=== PATIENT | female | born 1955 | race African-American/Black ===

== ENCOUNTER 2016-12-23 20:59 | Emergency (ER) | payer OTHER, SELFPAY ==
[2016-12-23] MEDS ORDERED: Ibuprofen 800 MG TAB ONE (23:04)
== END 2016-12-23 23:10 | disposition home or self-care (01) ==
LOC: ERS 20:59
DX: M85.68 Other cyst of bone, other site (principal); I10 Essential (primary) hypertension; K50.90 Crohn's disease, unspecified, without complications; F17.210 Nicotine dependence, cigarettes, uncomplicated
CPT/HCPCS: 99283

== ENCOUNTER 2017-04-19 17:11 | Emergency (ER) | payer BC, SELFPAY ==
--- NOTE | 2017-04-19 18:56 | RAD ---
SINGLE VIEW OF THE CHEST: Comparison: 07-30-16 History: Pneumonia with midback pain that is worse with inspiration. FINDINGS: Single view of the chest shows a normal sized cardiomediastinal silhouette. There is no evidence of c onsolidation, mass, or pleural effusion. The bones are unremarkable. IMPRESSION: No evidence of acute cardiopulmonary disease. POS: [facility]
[2017-04-19 19:10] LABS: #Basophils 0.1 thou/uL (0.0-0.2); #Eosinphils 0.3 thou/uL (0.0-0.7); #Lymphocytes 5.4 thou/uL (1.20-3.40); #Neutrophils 5.6 thou/uL (1.40-6.50); %Basophils 0.8 % (0.0-1.0); %Eosinophils 2.7 % (0.0-10.0); %Lymphocytes 43.6 % (21.0-51.0); %Monocytes 7.6 % (0.0-10.0); %Neutrophils 45.2 % (42.0-75.0); Hemoglobin 12.5 g/dL (12.0-16.0); Mean Corpuscular HGB CONC 32.3 g/dL (32.0-36.0); Mean Corpuscular Hemoglobin 28.9 pg (27.0-31.0); Mean Corpuscular Volume 89.3 fl (81.0-99.0); Mean Platelet Volume 6.7 fL (7.4-10.4); Platelet Count 361 thou/uL (130-400); RBC Distribution Width 13.9 % (11.5-14.5); Red Blood Cell (RBC) Count 4.32 mill/uL (4.20-5.40); White Blood Cell (WBC) Count 12.4 thou/uL (4.8-10.8)
[2017-04-19 19:22] LABS: Bilirubin Negative (Negative); Blood, Urine Negative (Negative); Clarity CLEAR (Clear); Glucose, Urine (Dipstick) Negative (Negative); Leukocyte Trace (Negative); Nitrite Negative (Negative); Protein, Urine (Dipstick) Negative (Neg-Trace); Specific Gravity, Urine 1.026 (1.002-1.036)
[2017-04-19 19:28] LABS: Bacteria/HPF 1+ HPF (None Seen); Hyaline Casts/LPF 0-3 HYALINE CAST LPF (0-3 Hyaline); RBC/HPF 0-3 HPF (0-3); Squamous Epithelial 0-3 HPF (0-3)
[2017-04-19 19:33] LABS: ALT (SGPT) 13 U/L (8-55); AST (SGOT) 15 U/L (5-34); Albumin 4.4 g/dL (3.5-5.0); Alkaline Phosphatase 86 U/L (40-150); Anion Gap 13 mmol/L (10-20); BUN (Urea Nitrogen) 10 mg/dL (9.8-20.1); Bilirubin, Total 0.2 mg/dL (0.2-1.2); CRP (Inflammatory) Less than 0.50 mg/dL (= or < 0.5); Calc. Creatinine Clearance 0 mL/min (70-130); Calcium 9.9 mg/dL (7.8-10.44); Carbon Dioxide 27 mmol/L (22-29); Chloride 105 mmol/L (98-107); Estimated GFR-MDRD 73; Globulin 3.4 g/dL (2.4-3.5); Glucose 77 mg/dL (70-105); Potassium 3.6 mmol/L (3.5-5.1); Protein, Total 7.8 g/dL (6.0-8.3); Sodium 141 mmol/L (136-145)
[2017-04-19 19:34] LABS: CKMB 1.2 ng/mL (0-6.6); Troponin I 0.012 ng/mL (< 0.028)
[2017-04-19] MEDS ORDERED: Ketorolac Tromethamine 30 MG/ML VIAL ONE (20:00)
== END 2017-04-19 20:20 | disposition home or self-care (01) ==
LOC: ERS 17:11
DX: M54.5 Low back pain (principal); K58.9 Irritable bowel syndrome, unspecified; K21.9 Gastro-esophageal reflux disease without esophagitis; I10 Essential (primary) hypertension; F17.210 Nicotine dependence, cigarettes, uncomplicated
CPT/HCPCS: 36415; 71045; 80053; 81003; 81015; 82553; 84484; 85025; 85379; 86140; 87086; 87804; 96372; J1885

== ENCOUNTER 2017-05-14 12:15 | Emergency (ER) | payer SELFPAY ==
[2017-05-14 12:46] LABS: #Basophils 0.1 thou/uL (0.0-0.2); #Eosinphils 0.2 thou/uL (0.0-0.7); #Lymphocytes 4.3 thou/uL (1.20-3.40); #Monocytes 0.7 thou/uL (0.11-0.59); #Neutrophils 3.6 thou/uL (1.40-6.50); %Basophils 0.8 % (0.0-1.0); %Eosinophils 2.4 % (0.0-10.0); %Lymphocytes 48.7 % (21.0-51.0); %Monocytes 7.7 % (0.0-10.0); %Neutrophils 40.4 % (42.0-75.0); Hemoglobin 12.8 g/dL (12.0-16.0); Mean Corpuscular HGB CONC 30.6 g/dL (32.0-36.0); Mean Corpuscular Hemoglobin 27.1 pg (27.0-31.0); Mean Corpuscular Volume 88.6 fl (81.0-99.0); Mean Platelet Volume 6.9 fL (7.4-10.4); Platelet Count 327 thou/uL (130-400); RBC Distribution Width 13.9 % (11.5-14.5); Red Blood Cell (RBC) Count 4.73 mill/uL (4.20-5.40); White Blood Cell (WBC) Count 8.8 thou/uL (4.8-10.8)
[2017-05-14] MEDS ORDERED: Pantoprazole 40 MG VIAL ONE (12:46)
[2017-05-14] MEDS ORDERED: Lorazepam 2 MG/ML VIAL ONE (12:46)
--- NOTE | 2017-05-14 13:07 | RAD ---
CHEST ONE VIEW: History: Chest pain. Jaw pain. Comparison: 04-19-17 FINDINGS: Lungs are clear. No pneumothorax or effusions. Cardiac silhouette and mediastinal contours are within normal limits. IMPRESSION: No acute intrathoracic abnormality. POS: [facility]
[2017-05-14 13:12] LABS: ALT (SGPT) 16 U/L (8-55); AST (SGOT) 21 U/L (5-34); Albumin 4.4 g/dL (3.5-5.0); Alkaline Phosphatase 79 U/L (40-150); Anion Gap 16 mmol/L (10-20); BUN (Urea Nitrogen) 12 mg/dL (9.8-20.1); Bilirubin, Total 0.7 mg/dL (0.2-1.2); CK (CPK) 81 U/L (29-168); Calc. Creatinine Clearance 0 mL/min (70-130); Calcium 10.1 mg/dL (7.8-10.44); Carbon Dioxide 23 mmol/L (22-29); Chloride 105 mmol/L (98-107); Estimated GFR-MDRD 64; Globulin 3.6 g/dL (2.4-3.5); Glucose 85 mg/dL (70-105); Lipase 7 U/L (8-78); Sodium 140 mmol/L (136-145)
[2017-05-14 13:16] LABS: CKMB 1.2 ng/mL (0-6.6); Troponin I Less than 0.010 ng/mL (< 0.028)
--- NOTE | 2017-05-16 13:06 | EKG ---
Test Reason : ANXIETY, CP Blood Pressure : / mmHG Vent. Rate : 121 BPM Atrial Rate : 121 BPM P-R Int : 158 ms QRS Dur : 064 ms QT Int : 314 ms P-R-T Axes : 079 054 061 degrees QTc Int : 445 ms Sinus tachycardia Biatrial enlargement Abnormal ECG Confirmed by NELI GAMEZ, SWATI ([id number]), general expeditor VIANEY PARDO ([id number]) on 05/16/2017 1:05:29 PM Referred By: Confirmed By:SWATI QUINTEROS MD
== END 2017-05-14 14:18 | disposition home or self-care (01) ==
LOC: ERS 12:15
DX: F41.1 Generalized anxiety disorder (principal); K58.9 Irritable bowel syndrome, unspecified; K21.9 Gastro-esophageal reflux disease without esophagitis; F17.210 Nicotine dependence, cigarettes, uncomplicated; Z79.899 Other long term (current) drug therapy
CPT/HCPCS: 71045; 80053; 82553; 83690; 84484; 85025; 93005; 96361; 96374; 96375; C9113; J2060

== ENCOUNTER 2017-07-30 10:58 | Day surgery (SDC) | payer OTHER ==
[2017-07-29 15:28] VITALS: BMI 38.9
[~2017-07-30 10:58] MED LIST: Dexamethasone 20 MG/5 ML VIAL ONE; Lidocaine 1% PF 5 ML VIAL ONE; Ondansetron HCl/PF 4 MG/2 ML Vial ONE; PROPOFOL 200 MG/20 ML VIAL ONE
[2017-07-30] MEDS ORDERED: Clindamycin/D5W 900 mg/50 ml Premix Bag ONE (11:47)
[2017-07-30] MEDS ORDERED: Bupivacaine PF 0.5% 30 ML VIAL ONE (13:26)
[2017-07-30] MEDS ORDERED: Fentanyl 100 MCG/2 ML VIAL ONE ×2 (13:29→15:21)
[2017-07-30] MEDS ORDERED: HYDROcodone/Acetaminophen 5/325 mg Tablet ONE (15:49)
--- NOTE | 2017-07-30 16:44 | OP ---
DATE OF PROCEDURE: 07/30/2017 OPERATION: Left wrist ganglion cyst excision, left carpal tunnel syndrome. PREOPERATIVE DIAGNOSES: Left ganglion cyst, volar and left carpal tunnel syndrome. POSTOPERATIVE DIAGNOSES: Left ganglion cyst, volar and left carpal tunnel syndrome. COMPLICATIONS: None. ESTIMATED BLOOD LOSS: Minimal. SURGEON: Patrick Burden M.D. ANESTHESIA: General plus local. INDICATIONS: Ms. Sharma is a 62-year-old female who has a long history of ganglion cyst on the v olar aspect of the left wrist. She also has developed carpal tunnel syndrome. She has been indicate d for the above procedures to restore function of the upper extremity and relieve pain. Surgery risk s have been reviewed and she has elected to proceed. DESCRIPTION OF OPERATION: Ms. Sharma was identified in the preoperative holding area. Her corre ct extremity was marked. She was carried to the operating room. She was positioned supine. General anesthesia was induced. A multidisciplinary timeout was performed. The left upper extremity was pr epped and draped in sterile fashion. We began the procedure with excision of the ganglion cyst. We made a 3 cm incision directly over the patient's previous scar. We dissected down through the subcutaneous tissues to the cyst wall. This was identified. We provided hemostasis with a cautery device. We then gently developed our planes around the cyst working mediolaterally proximal and distal down to the stalk which went directly into the wrist joint. We followed the stalk distally into the joint and then amputated the stalk. We ca uterized the bed of the wound. At this point, we thoroughly irrigated with copious lavage. The spec imen was sent for pathology. At this point, we moved to the carpal tunnel. A 2.5 cm incision was made. We dissected down through the subcutaneous tissues to the fascia. The fascia was split with a knife. We then worked more jakob ply and split the carpal tunnel ligament sharply. We then identified the proximal aspect of the carp al tunnel ligament. This was transected proximally using a push-cut technique. We then spread the c arpal tunnel ligament distally fully releasing. At this point, we thoroughly irrigated with copious lavage. We then closed with 2-0 Vicryl suture and nylon for the skin. A sterile dressing was applie d. The patient was taken to the recovery room in good condition without complication at this point: No implants were used.
[2017-07-30] MEDS ORDERED: Ketorolac Tromethamine 30 MG/ML VIAL ONE (16:46)
== END 2017-07-30 17:10 | disposition home or self-care (01) ==
LOC: SDC 10:58
PROVIDERS: ATTEND Orthopaedic Surgery
PROC: 01N50ZZ Release Median Nerve, Open Approach (ICD-10-PCS; principal; 2017-07-30)
PROC: 0LB60ZZ Excision of Left Lower Arm and Wrist Tendon, Open Approach (ICD-10-PCS; principal; 2017-07-30)
DX: M67.432 Ganglion, left wrist (principal); G56.02 Carpal tunnel syndrome, left upper limb; I10 Essential (primary) hypertension; K21.9 Gastro-esophageal reflux disease without esophagitis; N39.41 Urge incontinence; M48.061 Spinal stenosis, lumbar region without neurogenic claudication; Z79.890 Hormone replacement therapy; Z79.899 Other long term (current) drug therapy; Z88.0 Allergy status to penicillin; Z88.2 Allergy status to sulfonamides; Z91.041 Radiographic dye allergy status
CPT/HCPCS: 88304; 96372; 96374; J1100; J1885; J2001; J2405; J2704; J3010; J3490; S0020

== ENCOUNTER 2017-09-07 21:45 | Emergency (ER) | payer SELFPAY ==
[2017-09-07 22:37] LABS: #Basophils 0.1 thou/uL (0.0-0.2); #Eosinphils 0.2 thou/uL (0.0-0.7); #Lymphocytes 2.9 thou/uL (1.20-3.40); #Monocytes 0.5 thou/uL (0.11-0.59); #Neutrophils 2.7 thou/uL (1.40-6.50); %Basophils 1.3 % (0.0-1.0); %Eosinophils 2.6 % (0.0-10.0); %Lymphocytes 45.7 % (21.0-51.0); %Monocytes 7.7 % (0.0-10.0); %Neutrophils 42.7 % (42.0-75.0); Hemoglobin 11.9 g/dL (12.0-16.0); Mean Corpuscular HGB CONC 33.3 g/dL (32.0-36.0); Mean Corpuscular Hemoglobin 28.8 pg (27.0-31.0); Mean Corpuscular Volume 86.5 fL (78.0-98.0); Mean Platelet Volume 6.4 fL (7.4-10.4); Platelet Count 272 thou/uL (130-400); RBC Distribution Width 13.5 % (11.5-14.5); Red Blood Cell (RBC) Count 4.13 mill/uL (4.20-5.40); White Blood Cell (WBC) Count 6.4 thou/uL (4.8-10.8)
[2017-09-07 22:57] LABS: ALT (SGPT) 9 U/L (8-55); AST (SGOT) 14 U/L (5-34); Albumin 4.2 g/dL (3.5-5.0); Alkaline Phosphatase 82 U/L (40-150); Anion Gap 11 mmol/L (10-20); BUN (Urea Nitrogen) 7 mg/dL (9.8-20.1); Bilirubin, Total 0.2 mg/dL (0.2-1.2); Calc. Creatinine Clearance 0 mL/min (70-130); Calcium 9.5 mg/dL (7.8-10.44); Carbon Dioxide 28 mmol/L (22-29); Chloride 106 mmol/L (98-107); Estimated GFR-MDRD 68; Globulin 3.1 g/dL (2.4-3.5); Glucose 95 mg/dL (70-105); Potassium 3.7 mmol/L (3.5-5.1); Protein, Total 7.3 g/dL (6.0-8.3); Sodium 141 mmol/L (136-145)
[2017-09-07] MEDS ORDERED: diphenhydrAMINE 50 MG/ML VIAL ONE (23:08)
[2017-09-07] MEDS ORDERED: Metoclopramide HCl 10 MG/2 ML VIAL ONE (23:08)
[2017-09-07] MEDS ORDERED: Acetaminophen 500 MG TAB ONE (23:08)
[2017-09-07] MEDS ORDERED: Lidocaine 1% PF 5 ML VIAL ONE (23:09)
[2017-09-07 23:23] LABS: Troponin I Less than 0.010 ng/mL (< 0.028)
[2017-09-07] MEDS ORDERED: Promethazine HCl 25 MG/ML VIAL ONE (23:56)
[2017-09-08] MEDS ORDERED: Haloperidol Lactate 5 MG/ML VIAL ONE (01:13)
[2017-09-08] MEDS ORDERED: Dexamethasone 10 MG/ML VIAL ONE (01:13)
--- NOTE | 2017-09-08 07:37 | RAD ---
RADIOGRAPH CHEST 2 VIEWS: HISTORY: 62-year-old female with dyspnea. FINDINGS: There is no air space density, pulmonary edema, pleural effusion, pneumothorax, or cardiomegaly. IMPRESSION: No acute cardiopulmonary findings. jn [] POS: [facility]
--- NOTE | 2017-09-08 11:05 | CT ---
PRELIMINARY REPORT/[facility]/EMERGENTY AFTER-HOURS PROCEDURE CT Angiography Head Without And With Intravenous Contrast CLINICAL HISTORY: 62 years old, female; vomiting onset yesterday (x1 today), followed by SOB with headache onset 2 hour s ago. Pain radiating throughout entire head, like "got hit with a baseball bat" and eyes are "bulgin g" also some pain back of neck. past surg for carpal tunnel, cyst removal. + smoking TECHNIQUE: Axial computed tomographic angiography images of the head without and with intravenous contrast using CT angiography protocol. MIP reconstructed images were created and reviewed. Coronal and sagittal re formatted images were created and reviewed. COMPARISON: No relevant prior studies available. FINDINGS: VASCULATURE: Right internal carotid artery: No acute findings. Intracranial segment is patent with no significant stenosis. No aneurysm. Right anterior cerebral artery: Unremarkable. No occlusion or significant stenosis. No aneurysm. Right middle cerebral artery: Unremarkable. No occlusion or significant stenosis. No aneurysm. Right posterior cerebral artery: Unremarkable. No occlusion or significant stenosis. No aneurysm. Right vertebral artery: Unremarkable as visualized. Left internal carotid artery: No acute findings. Intracranial segment is patent with no significant s tenosis. No aneurysm. Left anterior cerebral artery: Unremarkable. No occlusion or significant stenosis. No aneurysm. Left middle cerebral artery: Unremarkable. No occlusion or significant stenosis. No aneurysm. Left posterior cerebral artery: Unremarkable. No occlusion or significant stenosis. No aneurysm. Left vertebral artery: Unremarkable as visualized. Basilar artery: Unremarkable. No occlusion or significant stenosis. No aneurysm. HEAD: Brain: No acute findings. No hemorrhage. No edema. Normal enhancement. Ventricles: Unremarkable. No ventriculomegaly. Bones/joints: No acute fracture. Soft tissues: Unremarkable. Sinuses: Partial ethmoid trauma right sphenoid, and right maxillary sinusitis. Mastoid air cells: Unremarkable as visualized. No mastoid effusion. IMPRESSION: 1. No acute intracranial findings / no intracranial hemorrhage. 2. CTA head within normal limits. No arterial occlusion or aneurysm. Thank you for allowing us to participate in the care of your patient. Dictated and Authenticated by: Edson Gutiérrez MD 09/08/2017 2:24 AM Central Time ([place] & [place]) NONCONTRAST ENHANCED CT IMAGES OF THE BRAIN CONTRAST ENHANCED CTA BRAIN: 2D and 3D reconstruction images were performed on an independent 3D workstation. FINAL REPORT: The brain CT is unremarkable with no evidence of intracranial masses, hemorrhages, strokes or contus ions. No significant evidence of acute intracranial pathology is seen. CTA BRAIN: The nez perce of [place] CTA is unremarkable. No significant evidence of vascular abnormality seen. Snow l flow is seen in the ICA, MCA, MAAME, and SEAT COVER MAKER vessels. POS: [facility]
[2017-09-08] MEDS ORDERED: ISOVUE-370 76%-LOCM 1 ML ONE (13:02)
--- NOTE | 2017-09-12 15:34 | EKG ---
Test Reason : Blood Pressure : / mmHG Vent. Rate : 065 BPM Atrial Rate : 065 BPM P-R Int : 236 ms QRS Dur : 070 ms QT Int : 422 ms P-R-T Axes : 069 030 022 degrees QTc Int : 438 ms Sinus rhythm with 1st degree A-V block Otherwise normal ECG Confirmed by JOSTIN Matthews, FLORINDA ([id number]), publishing editor VIANEY PARDO ([id number]) on 09/12/2017 3:33:31 PM Referred By: MD FRANKEL Confirmed By:FLORINDA FRANKEL M.D.
== END 2017-09-08 02:37 | disposition home or self-care (01) ==
LOC: ERS 21:45
DX: R51 Headache (principal); R06.02 Shortness of breath; K58.9 Irritable bowel syndrome, unspecified; K21.9 Gastro-esophageal reflux disease without esophagitis; G43.909 Migraine, unspecified, not intractable, without status migrainosus; I10 Essential (primary) hypertension; F17.210 Nicotine dependence, cigarettes, uncomplicated
CPT/HCPCS: 36415; 70450; 70496; 71046; 80053; 84484; 85025; 87081; 87430; 93005; 96365; 96375; J1100; J1200; J1630; J2001; J2270; J2550; J2765

== ENCOUNTER 2017-12-08 12:13 | Emergency (ER) | payer SELFPAY ==
[2017-12-08 13:12] LABS: #Basophils 0.1 thou/uL (0.0-0.2); #Eosinphils 0.2 thou/uL (0.0-0.7); #Lymphocytes 3.2 thou/uL (1.20-3.40); #Monocytes 0.4 thou/uL (0.11-0.59); #Neutrophils 3.1 thou/uL (1.40-6.50); %Basophils 1.5 % (0.0-1.0); %Eosinophils 2.6 % (0.0-10.0); %Lymphocytes 45.7 % (21.0-51.0); %Monocytes 6.2 % (0.0-10.0); Hemoglobin 11.6 g/dL (12.0-16.0); Mean Corpuscular HGB CONC 32.5 g/dL (32.0-36.0); Mean Corpuscular Hemoglobin 28.1 pg (27.0-31.0); Mean Corpuscular Volume 86.4 fL (78.0-98.0); Mean Platelet Volume 6.9 fL (7.4-10.4); Platelet Count 326 thou/uL (130-400); RBC Distribution Width 13.2 % (11.5-14.5); Red Blood Cell (RBC) Count 4.12 mill/uL (4.20-5.40)
[2017-12-08 13:18] LABS: PTT 29.4 SEC (22.9-36.1); Prothrombin Time 12.9 SEC (12.0-14.7)
[2017-12-08 13:41] LABS: ALT (SGPT) 12 U/L (8-55); AST (SGOT) 17 U/L (5-34); Albumin 4.1 g/dL (3.5-5.0); Alkaline Phosphatase 82 U/L (40-150); Anion Gap 14 mmol/L (10-20); BUN (Urea Nitrogen) 10 mg/dL (9.8-20.1); Bilirubin, Total 0.4 mg/dL (0.2-1.2); Calc. Creatinine Clearance 0 mL/min (70-130); Calcium 9.1 mg/dL (7.8-10.44); Carbon Dioxide 24 mmol/L (22-29); Chloride 104 mmol/L (98-107); Estimated GFR-MDRD 63; Globulin 3.2 g/dL (2.4-3.5); Glucose 115 mg/dL (70-105); Potassium 3.7 mmol/L (3.5-5.1); Protein, Total 7.3 g/dL (6.0-8.3); Sodium 138 mmol/L (136-145)
--- NOTE | 2017-12-08 14:38 | ULT ---
BILATERAL LOWER EXTREMITY VENOUS DUPLEX ULTRASOUND INCLUDING COLOR AND SPECTRAL DOPPLER IMAGING: History: 62-year-old female with history of right leg pain for two days. FINDINGS: Exam performed from groin to ankle including visualized greater saphenous, common femoral, superficia l femoral, profunda femoral, popliteal, trifurcation and posterior tibial vein regions. There is phas ic flow at all levels with normal compressibility and normal augmentation. IMPRESSION: No evidence for deep venous thrombosis. POS: [facility]
== END 2017-12-08 15:29 | disposition home or self-care (01) ==
LOC: ERS 12:13
DX: M54.10 Radiculopathy, site unspecified (principal); K21.9 Gastro-esophageal reflux disease without esophagitis; I10 Essential (primary) hypertension; G43.909 Migraine, unspecified, not intractable, without status migrainosus; F17.210 Nicotine dependence, cigarettes, uncomplicated; Z79.899 Other long term (current) drug therapy
CPT/HCPCS: 36415; 80053; 85025; 85610; 85730; 93970

== ENCOUNTER 2018-02-25 14:35 | Emergency (ER) | payer SELFPAY ==
[2018-02-25 15:15] LABS: #Basophils 0.1 thou/uL (0.0-0.2); #Eosinphils 0.2 thou/uL (0.0-0.7); #Lymphocytes 3.2 thou/uL (1.20-3.40); #Monocytes 0.5 thou/uL (0.11-0.59); #Neutrophils 3.3 thou/uL (1.40-6.50); %Basophils 1.4 % (0.0-1.0); %Eosinophils 2.8 % (0.0-10.0); %Monocytes 7.4 % (0.0-10.0); %Neutrophils 45.3 % (42.0-75.0); Hemoglobin 11.8 g/dL (12.0-16.0); Mean Corpuscular HGB CONC 32.3 g/dL (32.0-36.0); Mean Corpuscular Volume 86.7 fL (78.0-98.0); Mean Platelet Volume 6.8 fL (7.4-10.4); Platelet Count 311 thou/uL (130-400); RBC Distribution Width 13.4 % (11.5-14.5); Red Blood Cell (RBC) Count 4.22 mill/uL (4.20-5.40); White Blood Cell (WBC) Count 7.3 thou/uL (4.8-10.8)
[2018-02-25] MEDS ORDERED: Lorazepam 2 MG/ML VIAL ONE (15:35)
[2018-02-25] MEDS ORDERED: Ketorolac Tromethamine 30 MG/ML VIAL ONE (15:36)
[2018-02-25] MEDS ORDERED: Morphine 4 MG/ML VIAL ONE (15:36)
[2018-02-25 15:38] LABS: ALT (SGPT) 10 U/L (8-55); AST (SGOT) 13 U/L (5-34); Albumin 4.3 g/dL (3.5-5.0); Alkaline Phosphatase 74 U/L (40-150); Anion Gap 10 mmol/L (10-20); BUN (Urea Nitrogen) 11 mg/dL (9.8-20.1); Bilirubin, Total 0.5 mg/dL (0.2-1.2); Calc. Creatinine Clearance 0 mL/min (70-130); Calcium 9.9 mg/dL (7.8-10.44); Carbon Dioxide 28 mmol/L (22-29); Chloride 105 mmol/L (98-107); Estimated GFR-MDRD 57; Globulin 3.2 g/dL (2.4-3.5); Glucose 83 mg/dL (70-105); Lipase 9 U/L (8-78); Potassium 3.7 mmol/L (3.5-5.1); Protein, Total 7.5 g/dL (6.0-8.3); Sodium 139 mmol/L (136-145)
[2018-02-25 15:46] LABS: Bilirubin Negative (Negative); Blood, Urine Negative (Negative); Clarity CLOUDY (Clear); Glucose, Urine (Dipstick) Negative (Negative); Leukocyte Negative (Negative); Nitrite Negative (Negative); Protein, Urine (Dipstick) Negative (Neg-Trace); Specific Gravity, Urine 1.017 (1.002-1.036); Urobilinogen 0.2 mg/dL (0.2-1.0)
[2018-02-25] MEDS ORDERED: Ondansetron PF 4 MG/2 ML Vial ONE (15:49)
--- NOTE | 2018-02-25 16:23 | CT ---
CT ABDOMEN WITHOUT CONTRAST CT PELVIS WITHOUT CONTRAST: History: Right sided back and abdominal pain. Pain started four days ago. Comparison: 03-18-10 Technique: Abdomen and pelvic CT are performed without contrast. Coronal reformatted images are submi tted for interpretation. FINDINGS: ABDOMEN CT: Chronic linear opacities in the lung bases are suspected. 3 mm nodule in the left lower lobe. 4 mm no dule in the right lower lobe. Limited evaluation of the solid organs by the lack of IV contrast. Grossly, no solid organ abnormalit y. No gastrohepatic, retrocrural, or periportal lymph adenopathy. No mesenteric mass, lymphadenopathy, free air or free fluid. Symmetric attenuation of the psoas muscles. Bilaterally, no hydronephrosis, nephrolithiasis or fat stranding. Bilateral ureters have a normal connie iber. No hydroureter, or periureteral fat stranding. Limited evaluation of the alimentary canal by lack of oral contrast. Gastric mucosa, duodenum, and mu ltiple normal caliber small bowel loops are noted. Ileocecal junction is normal. Scattered fecal mate rial in a nondistended, nondilated colon. Normal caliber appendix. PELVIC CT: No mass, lymphadenopathy, free air or free fluid. Uterus is surgically absent. There is a hypodensity in the left adnexa measuring 1.6 x 1.6 cm with an attenuation coefficient of 7 Hounsfield units. Pos sible left ovarian cyst is suspected. No lytic or blastic lesions in the osseous structures. IMPRESSION: 1. No evidence for nephrolithiasis or obstructive uropathy. 2. Hypodensity in the left adnexa which may be of ovarian origin. Non-emergent MARKETING AMBASSADOR consultation. 3. No evidence of bowel obstruction. Normal caliber appendix. 4. Lung parenchymal nodules as described above. Code LN POS: [facility]
--- NOTE | 2018-02-27 13:17 | EKG ---
Test Reason : Blood Pressure : / mmHG Vent. Rate : 096 BPM Atrial Rate : 096 BPM P-R Int : 174 ms QRS Dur : 066 ms QT Int : 360 ms P-R-T Axes : 077 062 065 degrees QTc Int : 454 ms Normal sinus rhythm Normal ECG Confirmed by NELI GAMEZ, SWATI (12), news videotape editor VIANEY PARDO ([id number]) on 02/27/2018 1:17:02 PM Referred By: Confirmed By:SWATI QUINTEROS MD
== END 2018-02-25 15:25 | disposition home or self-care (01) ==
LOC: ERS 14:35
DX: N83.202 Unspecified ovarian cyst, left side (principal); K21.9 Gastro-esophageal reflux disease without esophagitis; I10 Essential (primary) hypertension; G43.909 Migraine, unspecified, not intractable, without status migrainosus; F17.210 Nicotine dependence, cigarettes, uncomplicated; Z79.899 Other long term (current) drug therapy
CPT/HCPCS: 36415; 74176; 80053; 81003; 82550; 83690; 84484; 85025; 93005; 96361; 96374; 96375; J1885; J2060; J2270; J2405

== ENCOUNTER 2018-03-03 13:08 | Outpatient (CLI) | payer OTHER ==
--- NOTE | 2018-03-03 15:41 | ULT ---
LEFT BREAST ULTRASOUND: 03/03/18 HISTORY: Abnormal mammogram. FINDINGS: Correlation is made with mammograms of today and 02/08/18. Sonographic evaluation of the left upper outer breast demonstrates a 1.3 cm cyst at the 2 o'clock pos ition, 3 cm from the nipple correlating with the nodule on the mammogram. IMPRESSION: BIRADS 2: Benign Finding(s) Routine annual screening mammography (for women over age 40). POS: [facility]
== END 2018-03-03 13:09 | disposition home or self-care (01) ==
LOC: BICMAMMO 13:08
PROVIDERS: ATTEND Internal Medicine
DX: N63.20 Unspecified lump in the left breast, unspecified quadrant (principal)
CPT/HCPCS: G0279

== ENCOUNTER 2018-04-07 07:58 | Outpatient (CLI) | payer OTHER ==
[2018-04-07] MEDS ORDERED: Iopamidol 370 76% 100 ML VIAL ONE (10:03)
--- NOTE | 2018-04-07 10:43 | CT ---
CT ABDOMEN AND PELVIS WITH IV CONTRAST: 04/07/2018 PROVIDED CLINICAL HISTORY: Right upper quadrant and right flank pain. COMPARISON: 08/19/2014 FINDINGS: Stable, sub-4 mm, noncalcified nodules are present at the lung bases. The visualized lung bases are free of significant opacity. The liver, spleen, pancreas, kidneys, and adrenal glands demonstrate an unremarkable CT appearance. Changes of prior cholecystectomy are seen. Stable duodenal lipoma. Stable, 1.8 cm, simple-appearing cystic structure in the left low pelvis, pr esumably reflecting a paraovarian cyst in this patient with changes of prior hysterectomy. There is conspicuous colonic fecal retention. There is no evidence for bowel obstruction. There is no evidence for inflammatory fat stranding, free fluid, or lymph node enlargement. The osseous structures demonstrate no concerning lytic or blastic lesions. Degenerative changes are seen involving the lumbar spine. Occasional vascular calcifications are seen. IMPRESSION: No evidence for an acute process. Chronic findings as above. POS: [facility]
== END 2018-04-07 07:59 | disposition home or self-care (01) ==
LOC: CT 07:58
PROVIDERS: ATTEND Internal Medicine Gastroenterology
DX: R10.11 Right upper quadrant pain (principal); R91.8 Other nonspecific abnormal finding of lung field; D17.5 Benign lipomatous neoplasm of intra-abdominal organs; M47.816 Spondylosis without myelopathy or radiculopathy, lumbar region; Z90.49 Acquired absence of other specified parts of digestive tract; Z90.710 Acquired absence of both cervix and uterus
CPT/HCPCS: 74177; 82565

== ENCOUNTER 2018-04-21 14:03 | Emergency (ER) | payer SELFPAY ==
--- NOTE | 2018-04-21 14:46 | RAD ---
PORTABLE CHEST 1 VIEW: Date: 04/21/18 Time: 1426 hours HISTORY: Shortness of breath. FINDINGS: The heart size is normal. The lungs are well expanded without focal areas of consolidation, pneumotho races, or pleural effusions. IMPRESSION: No radiographic evidence of acute cardiopulmonary process. POS: [facility]
[2018-04-21 14:54] LABS: #Basophils 0.1 thou/uL (0.0-0.2); #Eosinphils 0.2 thou/uL (0.0-0.7); #Lymphocytes 3.4 thou/uL (1.20-3.40); #Monocytes 0.6 thou/uL (0.11-0.59); #Neutrophils 3.7 thou/uL (1.40-6.50); %Basophils 1.1 % (0.0-1.0); %Eosinophils 2.7 % (0.0-10.0); %Lymphocytes 41.9 % (21.0-51.0); %Monocytes 8.1 % (0.0-10.0); %Neutrophils 46.3 % (42.0-75.0); Hemoglobin 11.6 g/dL (12.0-16.0); Mean Corpuscular HGB CONC 31.3 g/dL (32.0-36.0); Mean Corpuscular Hemoglobin 27.5 pg (27.0-31.0); Mean Corpuscular Volume 87.8 fL (78.0-98.0); Mean Platelet Volume 6.8 fL (7.4-10.4); Platelet Count 335 thou/uL (130-400); RBC Distribution Width 13.3 % (11.5-14.5); Red Blood Cell (RBC) Count 4.23 mill/uL (4.20-5.40)
[2018-04-21 15:13] LABS: ALT (SGPT) 10 U/L (8-55); AST (SGOT) 14 U/L (5-34); Albumin 4.1 g/dL (3.5-5.0); Alkaline Phosphatase 76 U/L (40-150); Anion Gap 11 mmol/L (10-20); BUN (Urea Nitrogen) 7 mg/dL (9.8-20.1); Bilirubin, Total 0.3 mg/dL (0.2-1.2); Calc. Creatinine Clearance 0 mL/min (70-130); Calcium 9.4 mg/dL (7.8-10.44); Carbon Dioxide 29 mmol/L (22-29); Chloride 102 mmol/L (98-107); Estimated GFR-MDRD 73; Glucose 88 mg/dL (70-105); Potassium 3.5 mmol/L (3.5-5.1); Protein, Total 7.1 g/dL (6.0-8.3); Sodium 138 mmol/L (136-145)
[2018-04-21] MEDS ORDERED: Meclizine HCl 25 MG TAB ONE (15:27)
[2018-04-21] MEDS ORDERED: Ondansetron PF 4 MG/2 ML Vial ONE (15:27)
--- NOTE | 2018-04-24 18:16 | EKG ---
Test Reason : DIZZINESS Blood Pressure : / mmHG Vent. Rate : 088 BPM Atrial Rate : 088 BPM P-R Int : 196 ms QRS Dur : 076 ms QT Int : 376 ms P-R-T Axes : 075 037 033 degrees QTc Int : 454 ms Normal sinus rhythm Possible Left atrial enlargement Borderline ECG Confirmed by AQUILES GAMEZ, SEAN ([id number]), assignment editor REBECCA JORGE ([id number]) on 04/24/2018 6:16:28 PM Referred By: Confirmed By:SEAN KWAN MD
== END 2018-04-21 16:40 | disposition home or self-care (01) ==
LOC: ERS 14:03
DX: R53.1 Weakness (principal); R42 Dizziness and giddiness; T45.0X5A Adverse effect of antiallergic and antiemetic drugs, initial encounter; R11.0 Nausea; F17.210 Nicotine dependence, cigarettes, uncomplicated; I10 Essential (primary) hypertension; G43.909 Migraine, unspecified, not intractable, without status migrainosus; K21.9 Gastro-esophageal reflux disease without esophagitis; Z79.899 Other long term (current) drug therapy
CPT/HCPCS: 36415; 71045; 80053; 84484; 85025; 93005; 96361; 96374; J2405

== ENCOUNTER 2018-05-14 08:16 | Emergency (ER) | payer BC, SELFPAY ==
[2018-05-14] MEDS ORDERED: diphenhydrAMINE 50 MG/ML VIAL ONE (08:41)
[2018-05-14] MEDS ORDERED: Metoclopramide HCl 10 MG/2 ML VIAL ONE (08:41)
[2018-05-14 08:51] LABS: #Lymphocytes 2.1 thou/uL (1.20-3.40); #Monocytes 1.1 thou/uL (0.11-0.59); #Neutrophils 5.3 thou/uL (1.40-6.50); %Basophils 0.1 % (0.0-1.0); %Eosinophils 0.3 % (0.0-10.0); %Lymphocytes 24.6 % (21.0-51.0); %Monocytes 12.6 % (0.0-10.0); %Neutrophils 62.4 % (42.0-75.0); Hemoglobin 12.3 g/dL (12.0-16.0); Mean Corpuscular HGB CONC 31.7 g/dL (32.0-36.0); Mean Corpuscular Hemoglobin 27.5 pg (27.0-31.0); Mean Corpuscular Volume 86.7 fL (78.0-98.0); Mean Platelet Volume 6.5 fL (7.4-10.4); Platelet Count 329 thou/uL (130-400); RBC Distribution Width 13.7 % (11.5-14.5); Red Blood Cell (RBC) Count 4.48 mill/uL (4.20-5.40); White Blood Cell (WBC) Count 8.4 thou/uL (4.8-10.8)
[2018-05-14 09:00] LABS: Prothrombin Time 12.7 SEC (12.0-14.7)
[2018-05-14 09:01] LABS: INR-International Normal Ratio 0.9
--- NOTE | 2018-05-14 09:05 | CT ---
CT BRAIN: INDICATIONS: Level II stroke evaluation. Slurred speech, right facial numbness, and headache. COMPARISON: 02/14/2011 FINDINGS: No acute infarct, hemorrhage, or hydrocephalus is present. The septum pellucidum and third ventricle are midline. There is mild mucosal thickening in the ethmoid air cells and left maxillary sinus. IMPRESSION: 1. No acute intracranial abnomality. 2. Mild paranasal sinus disease. Findings called to Dr. Cruz at 8:34 a.m. on 05/14/2018. CODE CR POS: [facility]
[2018-05-14 09:07] LABS: ALT (SGPT) 16 U/L (8-55); AST (SGOT) 16 U/L (5-34); Albumin 4.3 g/dL (3.5-5.0); Alkaline Phosphatase 85 U/L (40-150); Anion Gap 12 mmol/L (10-20); BUN (Urea Nitrogen) 8 mg/dL (9.8-20.1); Bilirubin, Total 0.4 mg/dL (0.2-1.2); CK (CPK) 54 U/L (29-168); Calc. Creatinine Clearance 0 mL/min (70-130); Calcium 9.7 mg/dL (7.8-10.44); Carbon Dioxide 27 mmol/L (22-29); Chloride 102 mmol/L (98-107); Estimated GFR-MDRD 73; Globulin 3.2 g/dL (2.4-3.5); Glucose 99 mg/dL (70-105); Potassium 3.4 mmol/L (3.5-5.1); Protein, Total 7.5 g/dL (6.0-8.3); Sodium 138 mmol/L (136-145)
[2018-05-14] MEDS ORDERED: Acetaminophen 500 MG TAB ONE (09:25)
[2018-05-14] MEDS ORDERED: Ketorolac Tromethamine 30 MG/ML VIAL ONE (10:03)
== END 2018-05-14 10:57 | disposition home or self-care (01) ==
LOC: ERS 08:16
DX: G43.809 Other migraine, not intractable, without status migrainosus (principal); K21.9 Gastro-esophageal reflux disease without esophagitis; I10 Essential (primary) hypertension; F17.210 Nicotine dependence, cigarettes, uncomplicated
CPT/HCPCS: 36416; 70450; 80053; 82550; 84484; 85025; 85610; 85730; 93005; 96365; 96375; J1200; J1885; J2765